=== PATIENT | male | born 1970 | race Caucasian/White ===

== ENCOUNTER → 2016-09-13 | Outpatient (CLI) | payer BC ==
[~2016-09-13] MED LIST: CLC/300 PO; IBUP-1050 PO
[2016-09-13 09:39] LABS: BASO % 0.6 %; BASO ABS # 0.03 K/uL (0-0.2); COMPLETE YES; HEMATOCRIT 41.2 % (42-52); LYMPH % 37.8 %; LYMPH ABS # 1.99 K/uL (1.2-3.4); MEAN CELL VOLUME 90.5 fL (80-100); MEAN CORPUSCULAR HEMOGLOBIN 30.3 pg (25-34); MEAN CORPUSCULAR HGB CONC 33.5 g/dl (32-36); MONO % 7.6 %; PLATELET COUNT 231 K/uL (130-400); RED BLOOD COUNT 4.55 M/uL (4.7-6.1); WHITE BLOOD COUNT 5.26 K/uL (4.8-10.8)
[2016-09-13 09:50] LABS: ALT/SGPT 46 U/L (12-78); CREATININE 0.92 mg/dl (0.60-1.40); URIC ACID 5.5 mg/dl (2.6-7.2)
[2016-09-13 09:53] LABS: ALKALINE PHOSPHATASE 72 U/L (45-117); AST/SGOT 24 U/L (15-37)
== END | disposition home or self-care (01) ==
LOC: C.LAB1850 07:35
PROVIDERS: ATTEND Internal Medicine Rheumatology
DX: M10.9 Gout, unspecified (principal)

== ENCOUNTER 2017-11-07 22:33 | Emergency (ER) | payer OTHER ==
[~2017-11-07] VITALS: Ht 185.4 cm; Wt 100.6 kg
[2017-11-07 22:36] VITALS: TEMP 36.6; Ht 185.4 cm; Wt 100.6 kg
[2017-11-07 23:06] VITALS: BP 124/85; PULSE 50; O2SAT 100
--- NOTE | 2017-11-07 23:10 | EMERGENCY ROOM VISIT NOTE ---
History First contact with patient: 22:41 Chief Complaint: LACERATION/CUT (NON-SUTURE) Stated Complaint: CUT LEFT INDEX FINGER Nursing Triage Summary: pt cut left index finger while cutting bread History of Present Illness The patient is a 47 year old male who presents to the Emergency Room with complaints of a laceration to his left index finger which occurred just prior to arrival. The patient states that he was slicing a loaf of bread when he slipped and accidentally cut his finger. He states that he cut bled a lot initially, but the bleeding has now slowed. He reports stinging, 2/10 pain at the site of laceration. He states his tetanus is up-to-date. He denies any numbness or weakness. Review of Systems A complete 6 point review of systems was reviewed with the patient with pertinent positives and negatives as per history of present illness. All else were negative. Past Medical/Surgical History Medical Problems: (1) No significant active problems Social History Smoking Status: Never Smoker Alcohol Use: occasionally Drug Use: none Current/Historical Medications Scheduled PRN Ibuprofen (Advil), 600-800 MG PO Q4 PRN for Pain Physical Exam Vital Signs Date Time Temp Pulse Resp B/P (MAP) Pulse Ox O2 Delivery O2 Flow Rate FiO2 11/07/17 23:06 50 16 124/85 100 Room Air 11/07/17 22:36 36.6 62 24 148/105 98 Room Air Physical Exam VITALS: Vitals are noted on the nurse's note and reviewed by myself. Vital signs stable. GENERAL: This is a 47-year-old male, in no acute distress, nondiaphoretic, well- developed well-nourished. SKIN: There is a 1.5 cm non-gaping laceration to the lateral aspect of the left index finger. No active bleeding. MUSCULOSKELETAL: Full range of motion of the left index finger. Capillary refill within 2 seconds. NEURO: Patient was alert and oriented to person place and time. Distal sensation intact. Medical Decision & Procedures Procedure Verbal consent was obtained to perform the procedure. The wound was cleansed with sterile saline and Betadine. 3 layers of Dermabond were applied to the wound. Hemostasis was achieved. The patient tolerated the procedure well. Medical Decision The patient was evaluated as above. He presents with a superficial laceration to the finger. Dermabond closure was performed. Wound care instructions were discussed with the patient. He verbalized understanding of my assessment and treatment plan and was discharged home in good condition. Medication Reconcilliation Current Medication List: was personally reviewed by me Blood Pressure Screening Patient's blood pressure: Elevated blood pressure Blood pressure disposition: Elevated BP felt to be situational Impression Primary Impression: Finger laceration Departure Information Dispostion Home / Self-Care Condition GOOD Referrals Pro,Georgi Angel M.D. (PCP) Patient Instructions My [facility] Additional Instructions Allow the skin glue to fall off on its own over the next several days. For pain control, you can use the following [id number] medicines (if >12 yo): - Regular strength (325mg/tab) Tylenol (acetaminophen) 2 tabs every 4-6 hours as needed. Do not exceed 12 tablets in a 24 hour period. Avoid taking more than 4 grams (4000 mg) of Tylenol per day. This includes any other sources of acetaminophen you may take on a regular basis. - Regular strength (200 mg/tab) Advil (ibuprofen) 1-2 tabs every 4-6 hours as needed. Do not exceed a dose of 3200 mg per day. Do not apply any ointments or lotions to the glue. Return for any signs of infection such as increasing redness, swelling, drainage or other new/concerning symptoms. Problem Qualifiers Primary Impression: Finger laceration Encounter type: initial encounter Finger: index finger Damage to nail status: without damage Foreign body presence: without foreign body Laterality: left Qualified Codes: S61.211A - Laceration without foreign body of left index finger without damage to nail, initial encounter
== END 2017-11-07 23:14 | disposition home or self-care (01) ==
LOC: C.EDB 22:34 → C.EDC 23:14
DX: S61.211A Laceration without foreign body of left index finger without damage to nail, initial encounter (principal); W26.0XXA Contact with knife, initial encounter

== ENCOUNTER 2024-10-30 19:36 | Inpatient (IN) ==
[2024-10-30] MEDS: SODIUM CHLORIDE 0.9% 1,000 ML IV ONE (19:54)
--- NOTE | 2024-10-30 19:55 | Emergency Department Note ---
Impression & Plan Diverticulitis, Leukocytosis, Bowel perforation ED Provider Note NAME: DHIRAJ FENRANDEZ AGE: 54 SEX: M : 1970 ARRIVES VIA: Walk-In INFORMANT: Patient ED PROVIDER(S): Deuce Marquez DO CHIEF COMPLAINT: Abdominal pain HPI: Patient is a 54-year-old male with a past medical history of edema, chronic venous insufficiency who presents ER for abdominal pain in the infraumbilical region. Associate with nausea but no vomiting. Denies any headache or change in vision. No chest pain or shortness of breath. No dysuria, urgency, or frequency. Patient denies any previous abdominal surgeries. He still has gallbladder appendix. It is worse with eating and drinking. ADDITIONAL HISTORY OBTAINED: Mom is present at bedside and notes that he has not had no previous surgeries. Chronic Medical/Social Conditions Affecting Care: Per HPI PAST MEDICAL HISTORY:See Below PAST SURGICAL HISTORY:See Below FAMILY HISTORY:See Below SOCIAL HISTORY:See Below HOME MEDICATIONS:See Below ALLERGIES:See Below VITALS:See Below PHYSICAL EXAMINATION: GENERAL: Sitting up in bed, alert, well appearing, well nourished, no distress, non-toxic EYE EXAM: normal conjunctiva. OROPHARYNX: mucous membranes are moist LUNGS: Clear to auscultation. Normal chest wall mechanics HEART: no murmurs, S1 normal and S2 normal ABDOMEN: abdomen soft, tender palpation right lower quadrant, normo-active bowel sounds, no masses, no rebound or guarding. UPPER EXTREMITIES: upper extremities are grossly normal. LOWER EXTREMITIES: No pitting edema. NEURO EXAM: Normal sensorium, cranial nerves II-XII grossly intact, normal speech, no gross weakness of arms, no gross weakness of legs. MEDICAL DECISION MAKING: [Patient is a 54-year-old male who presents ER for above-stated complaint. IV was established and blood work was obtained. Labs show leukocytosis of 16,000. No significant anemia. BMP along LFTs bilirubin and lipase was reassuring. UA was clean. CT Abdo pelvis showed microperforation with diverticulitis. Patient was given IV Zosyn, IV morphine and Zofran. He was updated at bedside. Discussed with general surgery Dr. Uribe and he was made aware and patient was admitted to the hospitalist Dr. Bimal Suh. Consults/Care Managements Discussions: Per [facility] Triage Nursing notes reviewed. Limited review of prior medical records performed Vital Signs: reviewed and remarkable for no significant abnormalities Differential diagnosis: Differential diagnoses includes but is not limited to gastritis, peptic ulcer disease, GERD, gallbladder disease, pancreatitis, small bowel obstruction, appendicitis, diverticulitis, hernia, urinary tract infection, torsion, perforation, trauma, infectious. ER treatment provided: See below Diagnostics interpreted by me include EKG and cardiac monitoring as listed below: -Cardiac Monitoring: An order was placed for continuous cardiac monitoring. The monitor shows a rate of 90 with sinus rhythm. -ECG: none -Laboratory studies:Interpreted by me as stated above in MDM and shown below. Imaging studies: Xrays: As interpreted by me:none CTs show: CT abdomen pelvis per my preliminary interpretation showed no obvious bowel obstruction CT abdomen pelvis per radiologist described above Procedures:none Critical Care: None Past Med/Surg History Problem List (Updated 10/31/24 @ 00:06 by Deuce Marquez DO) Bowel perforation (Acute) Leukocytosis (Acute) Diverticulitis (Acute) Acute diverticulitis Fever Chronic venous insufficiency Encounter for health maintenance examination Edema Varicose vein of leg Screening for lipid disorders Toe fracture, left Achilles tendinitis Plantar fasciitis of right foot Heel pain Elevated d-dimer Cyst of finger Pain in finger Encounter for health maintenance examination Tick bite of abdominal wall Gout (Acute) Intermittent low back pain (Acute) Upper back pain (Acute) Surgical History History of tooth extraction History of hernia repair History of hand surgery Family History Mother Thyroid condition Thyroid Grandfather (Maternal) Prostate cancer Denies family history of Colon cancer Ovarian cancer Myocardial infarction Breast cancer Social History Smoking Status: Never smoker Hx Alcohol Use: Yes Hx Substance Use: No Preferred Language: Indonesian Visual Impairment: No Limitations Hearing Ability: Normal marital status: current occupational status: employed Feels Safe at Home: Yes Childhood Exposure to Second-Hand Smoke: No Dental Care, Regularly: Yes Physical Activity Frequency: Does not Exercise Physical Activity Frequency Comment: none in past 4 months Seatbelt Use: always Sunscreen Use: Yes Allergies Allergies Allergy/AdvReac Type Severity Reaction Status Date / Time piperacillin [From Zosyn] Allergy Hives Verified 10/30/24 23:16 tazobactam [From Zosyn] Allergy Hives Verified 10/30/24 23:16 Home Meds Home Medications Medication Instructions Recorded Confirmed melatonin 10 mg capsule 10 mg PO HS Insomnia 11/15/21 10/30/24 allopurinol 100 mg tablet 200 mg PO DAILY 10/30/24 10/30/24 ascorbic acid (vitamin C) 1,000 mg 1,000 mg PO DAILY 10/30/24 10/30/24 tablet (Vitamin C) hydrocortisone 2.5 % topical cream 1 applic CO DAILY PRN Hemorrhoids 10/30/24 10/30/24 with perineal applicator (Procto-Med HC) vitamin D3 125 mcg (5,000 1 cap PO DAILY 10/30/24 10/30/24 unit)-vitamin K2 100 mcg capsule zinc 50 mg tablet 50 mg PO DAILY 10/30/24 10/30/24 Results & Data (ED) Vital Signs Vital Signs - 24 hr 10/30/24 19:39 10/30/24 19:51 10/30/24 20:02 Temperature 37.2 C Temperature Source Temporal Artery Scan Pulse Rate 87 73 Pulse Rate [Apical] 76 Pulse Rate from SpO2 Sensor Pulse Rhythm Regular Pulse Rhythm [Apical] Respiratory Rate 16 20 20 Respiratory Effort / Characteristics Non-Labored Spontaneous Respiratory Depth Respiratory Pattern Regular Blood Pressure 133/87 Blood Pressure [Left Arm] 115/72 Blood Pressure Mean 102 Blood Pressure Mean [Left Arm] 86 Blood Pressure Position [Left Arm] Lying Pulse Oximetry 98 96 97 Oxygen Delivery Method Room Air Room Air Room Air Sepsis Recent Fever Within 48 Hours No Sepsis New/Unexplained Change in Mental Status No Sepsis Action Taken by Nursing No Action Required 10/30/24 20:05 10/30/24 20:24 10/30/24 20:30 Temperature Temperature Source Pulse Rate 72 72 Pulse Rate [Apical] Pulse Rate from SpO2 Sensor 72 Pulse Rhythm Pulse Rhythm [Apical] Respiratory Rate 25 H Respiratory Effort / Characteristics Respiratory Depth Respiratory Pattern Blood Pressure 109/81 Blood Pressure [Left Arm] Blood Pressure Mean 86 Blood Pressure Mean [Left Arm] Blood Pressure Position [Left Arm] Pulse Oximetry 99 Oxygen Delivery Method Sepsis Recent Fever Within 48 Hours Sepsis New/Unexplained Change in Mental Status Sepsis Action Taken by Nursing 10/30/24 20:30 10/30/24 20:30 10/30/24 20:30 Temperature Temperature Source Pulse Rate 69 Pulse Rate [Apical] Pulse Rate from SpO2 Sensor 70 Pulse Rhythm Pulse Rhythm [Apical] Respiratory Rate 15 Respiratory Effort / Characteristics Respiratory Depth Respiratory Pattern Blood Pressure 109/81 109/81 Blood Pressure [Left Arm] Blood Pressure Mean 86 86 Blood Pressure Mean [Left Arm] Blood Pressure Position [Left Arm] Pulse Oximetry 99 Oxygen Delivery Method Sepsis Recent Fever Within 48 Hours Sepsis New/Unexplained Change in Mental Status Sepsis Action Taken by Nursing 10/30/24 21:12 10/30/24 21:13 10/30/24 21:13 Temperature Temperature Source Pulse Rate 74 Pulse Rate [Apical] Pulse Rate from SpO2 Sensor 70 Pulse Rhythm Pulse Rhythm [Apical] Respiratory Rate 21 Respiratory Effort / Characteristics Respiratory Depth Respiratory Pattern Blood Pressure 112/75 112/75 Blood Pressure [Left Arm] Blood Pressure Mean 86 86 Blood Pressure Mean [Left Arm] Blood Pressure Position [Left Arm] Pulse Oximetry 98 Oxygen Delivery Method Sepsis Recent Fever Within 48 Hours Sepsis New/Unexplained Change in Mental Status Sepsis Action Taken by Nursing 10/30/24 21:13 10/30/24 21:31 10/30/24 21:31 Temperature Temperature Source Pulse Rate Pulse Rate [Apical] Pulse Rate from SpO2 Sensor Pulse Rhythm Pulse Rhythm [Apical] Respiratory Rate Respiratory Effort / Characteristics Respiratory Depth Respiratory Pattern Blood Pressure 112/75 116/80 116/80 Blood Pressure [Left Arm] Blood Pressure Mean 86 91 91 Blood Pressure Mean [Left Arm] Blood Pressure Position [Left Arm] Pulse Oximetry Oxygen Delivery Method Sepsis Recent Fever Within 48 Hours Sepsis New/Unexplained Change in Mental Status Sepsis Action Taken by Nursing 10/30/24 21:31 10/30/24 21:33 10/30/24 21:51 Temperature Temperature Source Pulse Rate 69 71 Pulse Rate [Apical] Pulse Rate from SpO2 Sensor 68 71 Pulse Rhythm Pulse Rhythm [Apical] Respiratory Rate 27 H 15 Respiratory Effort / Characteristics Respiratory Depth Respiratory Pattern Blood Pressure 116/80 Blood Pressure [Left Arm] Blood Pressure Mean 91 Blood Pressure Mean [Left Arm] Blood Pressure Position [Left Arm] Pulse Oximetry 99 98 Oxygen Delivery Method Sepsis Recent Fever Within 48 Hours Sepsis New/Unexplained Change in Mental Status Sepsis Action Taken by Nursing 10/30/24 22:00 10/30/24 22:00 10/30/24 22:03 Temperature Temperature Source Pulse Rate 68 Pulse Rate [Apical] Pulse Rate from SpO2 Sensor 68 Pulse Rhythm Pulse Rhythm [Apical] Respiratory Rate 18 Respiratory Effort / Characteristics Respiratory Depth Respiratory Pattern Blood Pressure 130/84 130/84 Blood Pressure [Left Arm] Blood Pressure Mean 109 109 Blood Pressure Mean [Left Arm] Blood Pressure Position [Left Arm] Pulse Oximetry 98 Oxygen Delivery Method Sepsis Recent Fever Within 48 Hours Sepsis New/Unexplained Change in Mental Status Sepsis Action Taken by Nursing 10/30/24 23:27 Temperature Temperature Source Pulse Rate Pulse Rate [Apical] 69 Pulse Rate from SpO2 Sensor Pulse Rhythm Pulse Rhythm [Apical] Regular Respiratory Rate 18 Respiratory Effort / Characteristics Respiratory Depth Normal Respiratory Pattern Blood Pressure Blood Pressure [Left Arm] 115/76 Blood Pressure Mean Blood Pressure Mean [Left Arm] 89 Blood Pressure Position [Left Arm] Pulse Oximetry 99 Oxygen Delivery Method Room Air Sepsis Recent Fever Within 48 Hours Sepsis New/Unexplained Change in Mental Status Sepsis Action Taken by Nursing Laboratory Data 10/30/24 19:57 10/30/24 19:57 Lab Results 10/30/24 10/30/24 Range/Units 19:57 21:12 WBC 16.05 H (4.8-10.8) K/ul RBC 4.78 (4.70-6.10) M/uL Hgb 14.2 (14.0-18.0) g/dl Hct 42.6 (42.0-52.0) % MCV 89.1 (80.0-100.0) fL MCH 29.7 (25.0-34.0) pg MCHC 33.3 (32.0-36.0) g/dL RDW Std Deviation 41.2 (36.4-46.3) fL RDW Coeff of Van 12.7 (11.5-14.5) % Plt Count 247 (130-400) K/uL MPV 10.5 (9.4-12.4) fL Immature Gran % (Auto) 0.4 % Neut % (Auto) 86.2 % Lymph % (Auto) 8.1 % Camp % (Auto) 5.0 % Eos % (Auto) 0.1 % Baso % (Auto) 0.2 % Neut # (Auto) 13.82 H (1.40-6.50) K/uL Lymph # (Auto) 1.30 (1.20-3.40) K/uL Camp # (Auto) 0.81 H (0.11-0.59) K/uL Eos # (Auto) 0.01 (0.00-0.50) K/uL Baso # (Auto) 0.04 (0.00-0.20) K/uL Immature Gran # (Auto) 0.07 (0.01-0.20) K/uL Sodium 137 (136-145) mmol/L Potassium 3.9 (3.5-5.1) mmol/L Chloride 104 (98-107) mmol/L Carbon Dioxide 26 (21-32) mmol/L Anion Gap 7 (3-11) BUN 14 (6-23) mg/dl Creatinine 1.03 (0.6-1.4) mg/dl Est Cr Clr Drug Dosing 105.1 ml/min eGFR 85.79 BUN/Creatinine Ratio 13.6 (10-20) Glucose 95 (70-99(Fasting)) mg/dl Calcium 9.3 (8.6-10.3) mg/dl Total Bilirubin 1.3 H (0.2-1.0) mg/dl AST 17 (13-39) U/L ALT 21 (7-52) U/L Alkaline Phosphatase 68 (34-104) U/L Total Protein 7.4 (6.0-8.3) gm/dl Albumin 4.4 (3.4-5.0) gm/dl Globulin 3.0 (2.5-4.0) gm/dl Albumin/Globulin Ratio 1.5 (0.9-2) Lipase 7 L (11-82) U/L Urine Color Yellow Urine Appearance Clear (Clear) Urine pH 6.5 (4.5-7.5) Ur Specific Parachute 1.015 (1.000-1.030) Urine Protein Negative (Negative) Urine Glucose (UA) Negative (Negative) Urine Ketones Negative (Negative) Urine Blood Negative (Negative) Urine Nitrite Negative (Negative) Urine Bilirubin Negative (Negative) Urine Urobilinogen Negative (Negative) Ur Leukocyte Esterase Negative (Negative) Urine Comment Administered Medications Discontinued Medications Diphenhydramine HCl (Diphenhydramine 50 Mg/Ml Vial) 25 mg IV NOW STA Stop: 10/30/24 23:11 Last Admin: 10/30/24 23:21 Dose: 25 mg Documented By: NAW Sodium Chloride (Nss) 1,000 mls @ 999 mls/hr IV .Q1H1M ONE Stop: 10/30/24 20:52 Last Infusion: 10/30/24 22:52 Dose: Infused Documented By: Admin: 10/30/24 19:54 Dose: 999 mls/hr Documented By: OBED Piperacillin Sod/Tazobactam Sod (Zosyn) 4.5 gm in 100 mls @ 200 mls/hr IV NOW ONE; Protocol Stop: 10/30/24 22:23 Last Infusion: 10/30/24 22:52 Dose: Infused Documented By: Admin: 10/30/24 22:08 Dose: 200 mls/hr Documented By: OBED Ioversol (Optiray 320 100ml) 93 ml IV ONCE ONE Stop: 10/30/24 21:02 Last Admin: 10/30/24 21:01 Dose: 93 ml Documented By: SILAS Morphine Sulfate (Morphine Sulfate 4 Mg/Ml 1 Ml Carp\Vial) 4 mg IV NOW STA Stop: 10/30/24 22:18 Last Admin: 10/30/24 22:25 Dose: 4 mg Documented By: OBED Ondansetron HCl (Ondansetron Inj 2 Mg/Ml 2 Ml Vial) 4 mg IV NOW STA Stop: 10/30/24 22:18 Last Admin: 10/30/24 22:25 Dose: 4 mg Documented By: OBED Imaging Data Radiologist's Impression: Abdomen/Pelvis CT 10/30/24 19:51 CR Exam(s): CT ABDOMEN + PELVIS With Contrast IV Amt: 93ml opt 320 EXAM: CT Abdomen and Pelvis With Intravenous Contrast CLINICAL HISTORY: Reason for exam: abd pain. TECHNIQUE: Axial computed tomography images of the abdomen and pelvis with intravenous contrast. CTDI is 26.99 mGy and DLP is 1384.15 mGy-cm. Automated exposure control was utilized for the study. A dose lowering technique was utilized adhering to the principles of ALARA. CONTRAST: Patient received 93ml opt 320 of IV contrast COMPARISON: CT 10/05/2021 FINDINGS: ABDOMEN: Liver: Unremarkable. Gallbladder and bile ducts: Unremarkable. Pancreas: Unremarkable. Spleen: Unremarkable. Adrenals: Unremarkable. Kidneys and ureters: Unremarkable. No obstructing stones. No hydronephrosis. Stomach and bowel: Acute diverticulitis of the sigmoid colon. A few bubbles of extraluminal gas contained immediately adjacent to the sigmoid colon. No subdiaphragmatic free air. No abscess. Reactive mucosal thickening in the small bowel in the left lower quadrant. No bowel obstruction. PELVIS: Appendix: No findings to suggest acute appendicitis. Bladder: Unremarkable. Reproductive: Prostatomegaly. ABDOMEN and PELVIS: Intraperitoneal space: See above. Bones/joints: No acute fracture. Soft tissues: Posterior diaphragmatic hernia containing fat. Vasculature: Unremarkable. Lymph nodes: Unremarkable. IMPRESSION: Acute diverticulitis of the sigmoid colon. A few bubbles of extraluminal gas contained immediately adjacent to the sigmoid colon. No subdiaphragmatic free air. No abscess. Communications: Verify Receipt Electronically signed by: Cisco Feliz MD 10/30/24 21:48 PM Discharge Plan Visit Data Chief Complaint: Abdominal Pain Stated Complaint: ACUTE ABDOMINAL PAIN, CONCERN ABT DIVERTICULITIS ED Provider: Deuce Marquez Discharge Problem: Diverticulitis, Leukocytosis, Bowel perforation Condition: Fair Forms Stand Alone Forms: [facility] [employer] Prescriptions Prescriptions: No Action melatonin 10 mg capsule 10 mg PO HS hydrocortisone [Procto-Med HC] 2.5 % cream with perineal applicator 1 applic CO DAILY PRN (Reason: Hemorrhoids) allopurinol 100 mg tablet 200 mg PO DAILY ascorbic acid (vitamin C) [Vitamin C] 1,000 mg Tablet 1,000 mg PO DAILY Zinc Chelated 50 mg Tablet 50 mg PO DAILY vitamin D3-vitamin K2 125 mcg (5,000 unit)-100 mcg Capsule 1 cap PO DAILY Referrals Referrals: Georgi Mcdonnell MD [Primary Care Provider] - Discharge Problem: Leukocytosis Qualifiers: Leukocytosis type: unspecified Qualified Code(s): D72.829 - Elevated white blood cell count, unspecified
[2024-10-30 20:18] LABS: Hematocrit (blood only) 42.6 % (42.0-52.0); Hemoglobin 14.2 g/dl (14.0-18.0); Immature Granulocytes # (auto) 0.07 K/uL (0.01-0.20); Immature Granulocytes % (auto) 0.4 %; Mean Corpuscular Hemoglobin 29.7 pg (25.0-34.0); Mean Corpuscular Volume 89.1 fL (80.0-100.0); Platelet Count 247 K/uL (130-400); RDW Standard Deviation 41.2 fL (36.4-46.3); Red Blood Count 4.78 M/uL (4.70-6.10); White Blood Count 16.05 K/ul (4.8-10.8)
[2024-10-30 20:37] LABS: Alanine Aminotransferase 21.0 U/L (7-52); Albumin Globulin Ratio 1.5 (0.9-2); Alkaline Phosphatase 68.0 U/L (34-104); Anion Gap 7.0 (3-11); Bilirubin,Total 1.3 mg/dl (0.2-1.0); Blood Urea Nitrogen 14.0 mg/dl (6-23); Calcium 9.3 mg/dl (8.6-10.3); Carbon Dioxide 26.0 mmol/L (21-32); Chloride 104.0 mmol/L (98-107); Creatinine Clr Calc Pharmacy 105.1 ml/min; Globulin 3.0 gm/dl (2.5-4.0); Glucose 95.0 mg/dl (70-99(Fasting)); Lipase 7.0 U/L (11-82); Potassium 3.9 mmol/L (3.5-5.1); Sodium 137.0 mmol/L (136-145); Total Protein 7.4 gm/dl (6.0-8.3)
[2024-10-30] MEDS: OPTIRAY 320 100ml IV ONE (21:01)
--- NOTE | 2024-10-30 21:49 | CT Scan Report ---
Exam(s): CT ABDOMEN + PELVIS With Contrast IV Amt: 93ml opt 320 EXAM: CT Abdomen and Pelvis With Intravenous Contrast CLINICAL HISTORY: Reason for exam: abd pain. TECHNIQUE: Axial computed tomography images of the abdomen and pelvis with intravenous contrast. CTDI is 26.99 mGy and DLP is 1384.15 mGy-cm. Automated exposure control was utilized for the study. A dose lowering technique was utilized adhering to the principles of ALARA. CONTRAST: Patient received 93ml opt 320 of IV contrast COMPARISON: CT 10/05/2021 FINDINGS: ABDOMEN: Liver: Unremarkable. Gallbladder and bile ducts: Unremarkable. Pancreas: Unremarkable. Spleen: Unremarkable. Adrenals: Unremarkable. Kidneys and ureters: Unremarkable. No obstructing stones. No hydronephrosis. Stomach and bowel: Acute diverticulitis of the sigmoid colon. A few bubbles of extraluminal gas contained immediately adjacent to the sigmoid colon. No subdiaphragmatic free air. No abscess. Reactive mucosal thickening in the small bowel in the left lower quadrant. No bowel obstruction. PELVIS: Appendix: No findings to suggest acute appendicitis. Bladder: Unremarkable. Reproductive: Prostatomegaly. ABDOMEN and PELVIS: Intraperitoneal space: See above. Bones/joints: No acute fracture. Soft tissues: Posterior diaphragmatic hernia containing fat. Vasculature: Unremarkable. Lymph nodes: Unremarkable. IMPRESSION: Acute diverticulitis of the sigmoid colon. A few bubbles of extraluminal gas contained immediately adjacent to the sigmoid colon. No subdiaphragmatic free air. No abscess. Communications: Verify Receipt Electronically signed by: Cisco Feliz MD 10/30/24 21:48 PM
[2024-10-30 21:54] LABS: Appearance Urine Clear (Clear); Glucose Urine UA Negative (Negative)
[2024-10-30] MEDS: PIPERACILLIN/TAZOBACTAM 4.5 GM/100 ML BAG IV ONE (22:08)
--- NOTE | 2024-10-30 22:12 | History & Physical Report ---
Date of Service October 30, 2024 Assessment & Plan (1) Acute diverticulitis: Plan 54-year-old male PMHx diverticulosis and diverticulitis in September 2021, gout, BPH, and back pain presenting for abdominal pain starting at 0200 morning of arrival. ED eval CBC with leukocytosis 16.05, neutrophil predominant; CMP grossly unremarkable with exception of bilirubin 1.3; lipase 7; UA negative for infection; CTAP diverticulitis of sigmoid, few bubbles of extraluminal gas adjacent to sigmoid, no diaphragmatic air or abscess.; Provided with 1L NSS, Zosyn 4.5 g IV in ED. #Acute diverticulitis Patient with history of diverticulosis, h/o diverticulitis September 2021; Presenting with abdominal pain starting at 0200, associated nausea and diarrhea. Hemodynamically stable. Pt with lots of questions regarding appropriate bowel habits, dietary modifications, and future prevention for such episodes. This was discussed with him at the time of his admission, but pt would benefit from a handout to summarize this new information. - CBC leukocytosis 16.05; CMP bilirubin 1.3 - CBC am - CTAP diverticulitis of sigmoid colon, few bubbles of extraluminal gas adjacent to the sigmoid, no diaphragmatic air or abscess - NPO - IVF LR @ 125 mL/hr - Dilaudid prn pain -- initially received 1 dose of morphine which was AFTER Zosyn was administered, but given the development of hives I did d/c morphine as well but DO NOT suspect that this was the cause of the hives. - Zofran prn N/V - Metro + cipro IV started -- pt received 1 dose Zosyn in ED and started to develop hives across his entire back, with itching on his bilateral thighs. Zos yn d/c; pt received Benadryl IV in ED. Zosyn added to allergy list. - Gen sx consulted - appreciate input + recs IN HPI: Notified via [facility] at 2306 regarding a rash spreading across the patient's back. He did note itching of his bilateral thighs during my initial evaluation around [id number], but he was without any hives or additional skin changes at that time to include on his back. He was without SOB, throat swelling, or tongue swelling. The rash extended from the top of his back to the level of his waistband. His bilateral thighs did have the development of hives at that time. He had received Zosyn at the time of when this initially started with the itching, and morphine was just to be given. Zosyn was documented to have been given at 2208, morphine and Zofran were documented to have been given at 2225. Do suspect that this reaction was to Zosyn, however, given the administration of morphine as well, treatment will be adjusted to avoid both Zosyn and morphine during this hospital admission. Pt treated with Benadryl IV. HELD all oral medications at time of admission. #Gout- Stable, no current complaints; Allopurinol - continue #H/o elevated D-dimer- Ongoing laboratory abnormality since 2021, has been seen by heme/onc in the past. Thought to be secondary to inflammation; was not checked at admission given no clinical indications. Trend if appropriate. Dispo: Admit, med/sx VTE Prophylaxis: SCDs This document was dictated utilizing BeQuan. Please excuse any grammatical errors that may be secondary to use of this software. Admission and Anticipated Discharge Date Admission Date: 10/30/2024 History of Present Illness Chief Complaint: Abd pain Primary Care Provider: Georgi Mcdonnell MD 54-year-old male PMHx diverticulosis and diverticulitis in 2021, gout, BPH, and back pain presenting for abdominal pain starting at 0200 morning of arrival. States that the pain was a sudden onset, and was localized to his lower abdomen, just above the "genital region" per patient. States at its worse, it is a 7/10 on the pain scale and it is a sharp pain. It has not gotten any better, but it is worsened when he is sitting up straight or with movement. Reports that he has had diarrhea the past 2 days GINNER, only a few times per day. He does use a daily laxative. Did have episode of "gagging like he would throw up" when having a bowel movement earlier in the day, but did not have any vomiting. He denies fever or chills. Does not have any ideas as to what could have precipitated this. Of note, he has been having itching on his bilateral thighs where the hospital blankets are touching him. No allergic symptoms or rashes reported. Denies chest pain, SOB, palpitations, constipation, numbness/tingling, URI symptoms, weakness, syncope, or falls. ED eval CBC with leukocytosis 16.05, neutrophil predominant; CMP grossly unremarkable with exception of bilirubin 1.3; lipase 7; UA negative for infection; CTAP diverticulitis of sigmoid, few bubbles of extraluminal gas adjacent to sigmoid, no diaphragmatic air or abscess.; Provided with 1L NSS, Zosyn 4.5 g IV in ED. Notified via [facility] at 2305 regarding a rash spreading across the patient's back. He did note itching of his bilateral thighs during my initial evaluation around [id number], but he was without any hives or additional skin changes at that time to include on his back. He was without SOB, throat swelling, or tongue swelling. The rash extended from the top of his back to the level of his waistband. His bilateral thighs did have the development of hives at that time. He had received Zosyn at the time of when this initially started with the itching, and morphine was just to be given. Zosyn was documented to have been given at 2207, morphine and Zofran were documented to have been given at 2224. Do suspect that this reaction was to Zosyn, however, given the administration of morphine as well, treatment will be adjusted to avoid both Zosyn and morphine during this hospital admission. Pt treated with Benadryl IV. Please see Dr. Suh's attestation for adjustments/additions to treatment plan. Allergies Allergy/AdvReac Type Severity Reaction Status Date / Time piperacillin [From Zosyn] Allergy Hives Verified 10/30/24 23:16 tazobactam [From Zosyn] Allergy Hives Verified 10/30/24 23:16 Home Medications Medication Instructions Recorded Confirmed Type melatonin 10 mg capsule 10 mg PO HS Insomnia 11/15/21 10/30/24 History allopurinol 100 mg tablet 200 mg PO DAILY 10/30/24 10/30/24 History ascorbic acid (vitamin C) 1,000 mg 1,000 mg PO DAILY 10/30/24 10/30/24 History tablet (Vitamin C) hydrocortisone 2.5 % topical cream [address] DAILY PRN Hemorrhoids 10/30/24 10/30/24 History with perineal applicator (Procto-Med ) vitamin D3 125 mcg (5,000 1 cap PO DAILY 10/30/24 10/30/24 History unit)-vitamin K2 100 mcg capsule zinc 50 mg tablet 50 mg PO DAILY 10/30/24 10/30/24 History Past Med/Surg History Problem List (Updated 10/30/24 @ 22:22 by Trevor Hallman PA-C) Acute diverticulitis Fever Chronic venous insufficiency Encounter for health maintenance examination Edema Varicose vein of leg Screening for lipid disorders Toe fracture, left Achilles tendinitis Plantar fasciitis of right foot Heel pain Elevated d-dimer Cyst of finger Pain in finger Encounter for health maintenance examination Tick bite of abdominal wall Gout (Acute) Intermittent low back pain (Acute) Upper back pain (Acute) Surgical History History of tooth extraction History of hernia repair History of hand surgery Family History Mother Thyroid condition Thyroid Grandfather (Maternal) Prostate cancer Denies family history of Colon cancer Ovarian cancer Myocardial infarction Breast cancer Social History Smoking Status: Never smoker Hx Alcohol Use: Yes Hx Substance Use: No Preferred Language: Malaysian Visual Impairment: No Limitations Hearing Ability: Normal marital status: current occupational status: employed Feels Safe at Home: Yes Childhood Exposure to Second-Hand Smoke: No Dental Care, Regularly: Yes Physical Activity Frequency: Does not Exercise Physical Activity Frequency Comment: none in past 4 months Seatbelt Use: always Sunscreen Use: Yes Review of Systems Review of Systems: All systems reviewed & are unremarkable except as noted in Subjective Physical Exam Physical Exam: General: No acute distress Skin: Warm and dry; Scratching his thighs so there are slightly erythematous jordan where he is doing this but no breaks to skin and no skin changes otherwise, no hives; Upon reeval at 2315, pt was up to restroom and his back was covered in diffuse hives, raised and erythematous Head: Normocephalic, atraumatic Eyes: PERRL, conjunctivae clear, sclera non-icteric ENT: External ear and ear canal without swelling; nose atraumatic; good dentition, tongue normal appearance, pharynx normal Neck: Supple, no LAD Cardio: RRR, no M/G/R, S1 and S2 normal Resp: No respiratory distress, Lungs CTA in all lobes bilaterally, no wheezes, rales, or rhonchi Abdomen: Soft, symmetric, mild tenderness to palpation LLQ; No masses or hepatosplenomegaly; Bowel sounds normoactive MSK: No deformities; pulses palpable and equal; no edema. Neuro: Awake, alert; Sensation intact bilaterally; CN grossly intact Psych: Appropriate mood and affect; good judgement and insight. present in room at time of visit. Results & Data Results & Data Vital Signs (Past 12 Hours) Vital Signs Temp Pulse Pulse Resp BP BP Pulse Ox 10/30/24 21:13 112/75 10/30/24 21:13 112/75 10/30/24 21:13 112/75 10/30/24 21:12 74 21 98 10/30/24 20:30 69 15 99 10/30/24 20:30 109/81 10/30/24 20:30 109/81 10/30/24 20:30 109/81 10/30/24 20:24 72 25 H 99 10/30/24 20:05 72 10/30/24 20:02 76 20 115/72 97 10/30/24 19:51 73 20 96 10/30/24 19:39 37.2 C 87 16 133/87 98 O2 Del Method 10/30/24 21:13 10/30/24 21:13 10/30/24 21:13 10/30/24 21:12 10/30/24 20:30 10/30/24 20:30 10/30/24 20:30 10/30/24 20:30 10/30/24 20:24 10/30/24 20:05 10/30/24 20:02 Room Air 10/30/24 19:51 Room Air 10/30/24 19:39 Room Air Laboratory Results 10/30/24 10/30/24 21:12 19:57 WBC 16.05 H RBC 4.78 Hgb 14.2 Hct 42.6 MCV 89.1 MCH 29.7 MCHC 33.3 RDW Std Deviation 41.2 RDW Coeff of Van 12.7 Plt Count 247 MPV 10.5 Immature Gran % (Auto) 0.4 Neut % (Auto) 86.2 Lymph % (Auto) 8.1 [place] % (Auto) 5.0 Eos % (Auto) 0.1 Baso % (Auto) 0.2 Neut # (Auto) 13.82 H Lymph # (Auto) 1.30 [place] # (Auto) 0.81 H Eos # (Auto) 0.01 Baso # (Auto) 0.04 Immature Gran # (Auto) 0.07 Sodium 137 Potassium 3.9 Chloride 104 Carbon Dioxide 26 Anion Gap 7 BUN 14 Creatinine 1.03 Est Cr Clr Drug Dosing 105.1 eGFR 85.79 BUN/Creatinine Ratio 13.6 Glucose 95 Calcium 9.3 Total Bilirubin 1.3 H AST 17 ALT 21 Alkaline Phosphatase 68 Total Protein 7.4 Albumin 4.4 Globulin 3.0 Albumin/Globulin Ratio 1.5 Lipase 7 L Urine Color Yellow Urine Appearance Clear Urine pH 6.5 Ur Specific [place] 1.015 Urine Protein Negative Urine Glucose (UA) Negative Urine Ketones Negative Urine Blood Negative Urine Nitrite Negative Urine Bilirubin Negative Urine Urobilinogen Negative Ur Leukocyte Esterase Negative Urine Comment Diagnostic Findings Abdomen/Pelvis CT 10/30/24 19:51 CR Exam(s): CT ABDOMEN + PELVIS With Contrast IV Amt: 93ml opt 320 EXAM: CT Abdomen and Pelvis With Intravenous Contrast CLINICAL HISTORY: Reason for exam: abd pain. TECHNIQUE: Axial computed tomography images of the abdomen and pelvis with intravenous contrast. CTDI is 26.99 mGy and DLP is 1384.15 mGy-cm. Automated exposure control was utilized for the study. A dose lowering technique was utilized adhering to the principles of ALARA. CONTRAST: Patient received 93ml opt 320 of IV contrast COMPARISON: CT 10/05/2021 FINDINGS: ABDOMEN: Liver: Unremarkable. Gallbladder and bile ducts: Unremarkable. Pancreas: Unremarkable. Spleen: Unremarkable. Adrenals: Unremarkable. Kidneys and ureters: Unremarkable. No obstructing stones. No hydronephrosis. Stomach and bowel: Acute diverticulitis of the sigmoid colon. A few bubbles of extraluminal gas contained immediately adjacent to the sigmoid colon. No subdiaphragmatic free air. No abscess. Reactive mucosal thickening in the small bowel in the left lower quadrant. No bowel obstruction. PELVIS: Appendix: No findings to suggest acute appendicitis. Bladder: Unremarkable. Reproductive: Prostatomegaly. ABDOMEN and PELVIS: Intraperitoneal space: See above. Bones/joints: No acute fracture. Soft tissues: Posterior diaphragmatic hernia containing fat. Vasculature: Unremarkable. Lymph nodes: Unremarkable. IMPRESSION: Acute diverticulitis of the sigmoid colon. A few bubbles of extraluminal gas contained immediately adjacent to the sigmoid colon. No subdiaphragmatic free air. No abscess. Communications: Verify Receipt Electronically signed by: Cisco Feliz MD 10/30/24 21:48 PM Medications Administered Zosyn 4.5 g IV NSS 1L Code Status & VTE Plan Code Status Full Supervising Physician Co-Signing Physician Notes Attending addendum: I have physically seen this patient, have supervised the SILVER's activities, and agree with the H&P unless as otherwise noted. Assessment and Plan: The patient is a 54-year-old male with a past medical history including chronic venous insufficiency, lower extremity edema, Achilles tendinitis, gout, and intermittent back pain. He presents to the emergency department with acute onset of left lower quadrant pain, and notes that he and his have been eating significantly more vegetables over the past few weeks and effort of being healthier. CT scan of abdomen pelvis shows a acute sigmoid diverticulitis with microperforation, with extraluminal gas adjacent to the sigmoid colon noted. In the emergency department patient received Zosyn IV, morphine 4 mg IV, Zofran 4 mg IV and normal saline 1 L. Sigmoid diverticulitis with microperforation- CT notes the diagnosis, and extraluminal gas adjacent to the sigmoid. N.p.o. Patient unfortunately had a significant reaction to Zosyn IV, which was completed in the ED He had significant improvement to the rash after given Benadryl 25 mg IV. Admit on Cipro 40 mg IV every 12 hours, and Flagyl 500 mg IV every 8 hours Pantoprazole 40 mg IV daily Status post 1 L normal saline bolus in the ED Placed on LR at 125 mL/h Dilaudid IV for pain control as noted General Surgery consult has been placed by the emergency department Zofran 4 mg IV every 6 hours as needed Gout- No active issues at this time Hold on allopurinol until able to take p.o. Insomnia- Hold melatonin while n.p.o. Remaining orders and notations as noted PG Care Time/CCT Total # of Minutes Spent Total Time Spent with Patient: Total time spent is greater than 50% in coordination of care (as documented) at patient's floor/unit and/or counseling patient: Coding Level of Care Code 76809 INT INP/OBS CARE Diagnoses Acute diverticulitis K57.92
[2024-10-30] MEDS: MoRPHine SULFATE 4 MG/ML 1 ML CARP\\VIAL IV STA (22:25)
[2024-10-30] MEDS: ONDANSETRON INJ 2 MG/ML 2 ML VIAL IV STA (22:25)
[2024-10-30] MEDS: diphenhydrAMINE 50 MG/ML VIAL IV STA (23:21)
[2024-10-31] MEDS ORDERED: NALOXONE HCL 0.4 MG/1 ML VIAL/CARP IV PRN (01:36)
[2024-10-31] MEDS ORDERED: HYDROmorphone INJ 0.5 MG/0.5 ML SYR IV PRN (01:36)
[2024-10-31] MEDS ORDERED: ONDANSETRON INJ 2 MG/ML 2 ML VIAL IV PRN (01:36)
[2024-10-31] MEDS: LACTATED RINGER'S 1,000 ML IV SCH (01:59)
[2024-10-31] MEDS: HYDROmorphone INJ 0.5 MG/0.5 ML SYR IV PRN (02:06)
[2024-10-31] MEDS ORDERED: Nursing to Pharmacy Communication SCH (02:30)
[2024-10-31] MEDS: metroNIDAZOLE 500 MG/100 ML BAG IV SCH (02:34)
[2024-10-31] MEDS: CIPROFLOXACIN / D5W 400 MG/200 ML BAG IV SCH (03:42)
[2024-10-31] MEDS: diphenhydrAMINE 50 MG/ML VIAL IV STA (05:47)
[2024-10-31 06:53] LABS: Hematocrit (blood only) 39.2 % (42.0-52.0); Hemoglobin 12.8 g/dl (14.0-18.0); Mean Corpuscular Hemoglobin 29.8 pg (25.0-34.0); Mean Corpuscular Volume 91.2 fL (80.0-100.0); Platelet Count 196 K/uL (130-400); RDW Standard Deviation 42.7 fL (36.4-46.3); Red Blood Count 4.30 M/uL (4.70-6.10); White Blood Count 10.19 K/ul (4.8-10.8)
[2024-10-31 07:33] LABS: Anion Gap 5.0 (3-11); Blood Urea Nitrogen 13.0 mg/dl (6-23); Calcium 8.4 mg/dl (8.6-10.3); Carbon Dioxide 26.0 mmol/L (21-32); Chloride 108.0 mmol/L (98-107); Creatinine Clr Calc Pharmacy 93.8 ml/min; Glucose 102.0 mg/dl (70-99(Fasting)); Potassium 3.8 mmol/L (3.5-5.1); Sodium 139.0 mmol/L (136-145)
--- NOTE | 2024-10-31 11:07 | Hospitalist Progress Note ---
Date of Service October 31, 2024 Assessment & Plan (1) Acute diverticulitis: Plan: -CT shows diverticulitis of sigmoid colon, few bubbles of extraluminal gas adjacent to the sigmoid, no diaphragmatic air or abscess -cipro/flagyl dand #1 -clear liquid diet -IVF -Toradol for pain control (2) Drug rash: Plan: -related to zosyn and possible Dilaudid -discontinued both -benadryl prn -con't to monitor Plan 54-year-old male PMHx diverticulosis and diverticulitis in September 2021, gout, BPH, and back pain presenting for abdominal pain starting at 0200 morning of arrival. ED eval CBC with leukocytosis 16.05, neutrophil predominant; CMP grossly unremarkable with exception of bilirubin 1.3; lipase 7; UA negative for infection; CTAP diverticulitis of sigmoid, few bubbles of extraluminal gas adjacent to sigmoid, no diaphragmatic air or abscess.; Provided with 1L NSS, Zosyn 4.5 g IV in ED. Admission and Anticipated Discharge Date Admission Date: October 30, 2024 Subjective Pt still with itchiness and diffuse upper body rash. He states his pain is a 4/10. Review of Systems Review of Systems: rash upper body extending down arms back and stomach CONST: Negative for fever, body aches and chills. HENT: Negative for neck pain/stiffness, headache, congestion, sore throat, swelling. EYES: Negative for discharge/pain or vision changes. RESP: Negative for cough/hemoptysis and shortness of breath. CV: Negative chest pain, difficulty breathing, palpitations. ABD: Negative pain, nausea, vomiting. : Negative increase frequency, dysuria, blood in urine or stool. MUSC: Negative for muscle aches, edema. SKIN: Negative rash, lesions/sores. NEURO: Negative headache, dizziness, weakness. Physical Exam Physical Exam: GENERAL APPEARANCE NAD, activity normal for age, well developed/ well nourished, no cyanosis, pallor, or diaphoresis. EYES lids/conjunctiva normal. EARS/NOSE/THROAT Mucous membranes moist, nares normal, lips/teeth normal uvula midline without oral pharyngeal erythema, exudate or swelling TMs normal bilaterally. No lymphangitis/lymphedema. HEAD/NECK normocephalic atraumatic, no facial trauma, neck is supple. RESPIRATORY respiratory effort normal, speaks in full sentences, no tripod position, no accessory muscle use. Lungs clear to auscultation without rhonchi, wheezes, rales CARDIAC Regular rate and rhythm, no edema. ABDOMINAL Soft, ND/NT. No evidence of fluid wave. No pulsatile masses on exam, rebound tenderness, Rios sign or pain over Mcburney's point. MUSCLES/EXTREMITIES No abnormal range of motion, no swelling. SKIN Diffuse rash on upper body. NEUROLOGICAL Speech is clear and appropriate. Normal level of consciousness. Gait and coordination are normal. 5/5 strength in all extremities. PSYCH Normal mood and affect. Judgement/competence is appropriate Results & Data Results & Data Vital Signs (Past 12 Hours) Vital Signs Temp Pulse Pulse Pulse Resp BP BP 10/31/24 07:15 36.6 C 64 18 103/66 10/31/24 05:10 37.7 C H 10/31/24 01:37 36.7 C 96 H 18 118/71 10/31/24 01:32 62 12 113/72 10/31/24 01:00 62 16 113/92 10/31/24 00:40 70 18 115/65 10/30/24 23:58 70 10/30/24 23:27 69 18 115/76 Pulse Ox O2 Del Method 10/31/24 07:15 92 Room Air 10/31/24 05:10 97 Room Air 10/31/24 01:37 97 Room Air 10/31/24 01:32 96 10/31/24 01:00 96 Room Air 10/31/24 00:40 98 Room Air 10/30/24 23:58 10/30/24 23:27 99 Room Air PG Care Time/CCT Total # of Minutes Spent Total Time Spent with Patient: Total time spent is greater than 50% in coordination of care (as documented) at patient's floor/unit and/or counseling patient: Coding Level of Care Code 72283 SUB INP/OBS CARE 2/35MIN Diagnoses Acute diverticulitis K57.92 Drug rash L27.0
[2024-10-31] MEDS: KETOROLAC TROMETHAMINE 15 MG/ML VIAL IV PRN (11:38)
--- NOTE | 2024-10-31 13:25 | Surgery Consultation ---
Date of Consultation October 31, 2024 Assessment & Plan (1) Diverticulitis: IV abx bowel rest possibly begin diet tomorrow conservative treatment History of Present Illness Attending Physician: Thanh Villatoro MD History of Present Illness This is a 54YO male with known diverticulosis who presented with abdominal pain, WBC at 16.05. CT scan with diverticulitis of sigmoid, few bubbles of extraluminal gas adjacent to sigmoid, no diaphragmatic air or abscess. He feels better today on IV abx. Allergies Allergy/AdvReac Type Severity Reaction Status Date / Time piperacillin [From Zosyn] Allergy Hives Verified 10/30/24 23:16 tazobactam [From Zosyn] Allergy Hives Verified 10/30/24 23:16 Home Medications Medication Instructions Recorded Confirmed Type melatonin 10 mg capsule 10 mg PO HS Insomnia 11/15/21 10/30/24 History allopurinol 100 mg tablet 200 mg PO DAILY 10/30/24 10/30/24 History ascorbic acid (vitamin C) 1,000 mg 1,000 mg PO DAILY 10/30/24 10/30/24 History tablet (Vitamin C) hydrocortisone 2.5 % topical cream 1 applic [place] DAILY PRN Hemorrhoids 10/30/24 10/30/24 History with perineal applicator (Procto-Med HC) vitamin D3 125 mcg (5,000 1 cap PO DAILY 10/30/24 10/30/24 History unit)-vitamin K2 100 mcg capsule zinc 50 mg tablet 50 mg PO DAILY 10/30/24 10/30/24 History Patient History Surgical History History of tooth extraction History of hernia repair History of hand surgery Family History Mother Thyroid condition Thyroid Grandfather (Maternal) Prostate cancer Denies family history of Colon cancer Ovarian cancer Myocardial infarction Breast cancer Social History Smoking Status: Never smoker Hx Alcohol Use: Yes Alcohol type: wine Hx Substance Use: No Preferred Language: Maldivian Communication Ability: Effective Visual Impairment: No Limitations Hearing Ability: Normal Auto Top Mechanic Required: No Beliefs That Will Affect Care: None marital status: Current Living Situation: Spouse current occupational status: employed Other Information That Helps Us Care for You: No Feels Safe at Home: Yes Childhood Exposure to Second-Hand Smoke: No Dental Care, Regularly: Yes Physical Activity Frequency: Does not Exercise Physical Activity Frequency Comment: none in past 4 months Seatbelt Use: always Sunscreen Use: Yes Assistive Devices: None Review of Systems Constitutional: no fever and no chills Eyes: no problem reported Ear, Nose, Mouth, Throat: no problem reported Respiratory: no cough and no dyspnea Cardiovascular: no chest pain Gastrointestinal: + abdominal pain; no nausea, no vomiting and no change in bowel habits Genitourinary: no dysuria Integumentary: no problem reported Neurologic: no localized weakness and no generalized weakness Psychiatric: no behavioral changes Hematologic / Lymphatic: no easy bleeding and no easy bruising Physical Exam Constitutional: WD/WN, vitals as above Eyes: no scleral abnormality ENMT: external ear and nose normal, oropharynx normal Respiratory: normal respiratory effort Cardiovascular: RRR, no murmur, no edema Gastrointestinal (Abdomen): Inspection/Auscultation: abdomen normal to in spection and normal bowel sounds; abdomen not distended Percussion/Palpation: + abdomen tender and abdomen soft; no guarding and abdomen not rigid Musculoskeletal: Head/Neck/Chest: normocephalic and head atraumatic Skin: no rashes, warm and dry Results & Data Vital Signs (Past 12 Hours) Vital Signs Temp Pulse Pulse Resp BP BP Pulse Ox 10/31/24 07:15 36.6 C 64 18 103/66 92 10/31/24 05:10 37.7 C H 97 10/31/24 01:37 36.7 C 96 H 18 118/71 97 10/31/24 01:32 62 12 113/72 96 O2 Del Method 10/31/24 07:15 Room Air 10/31/24 05:10 Room Air 10/31/24 01:37 Room Air 10/31/24 01:32 Diagnostic Findings EXAM: CT Abdomen and Pelvis With Intravenous Contrast CLINICAL HISTORY: Reason for exam: abd pain. TECHNIQUE: Axial computed tomography images of the abdomen and pelvis with intravenous contrast. CTDI is 26.99 mGy and DLP is 1384.15 mGy-cm. Automated exposure control was utilized for the study. A dose lowering technique was utilized adhering to the principles of ALARA. CONTRAST: Patient received 93ml opt 320 of IV contrast COMPARISON: CT 10/05/2021 FINDINGS: ABDOMEN: Liver: Unremarkable. Gallbladder and bile ducts: Unremarkable. Pancreas: Unremarkable. Spleen: Unremarkable. Adrenals: Unremarkable. Kidneys and ureters: Unremarkable. No obstructing stones. No hydronephrosis. Stomach and bowel: Acute diverticulitis of the sigmoid colon. A few bubbles of extraluminal gas contained immediately adjacent to the sigmoid colon. No subdiaphragmatic free air. No abscess. Reactive mucosal thickening in the small bowel in the left lower quadrant. No bowel obstruction. PELVIS: Appendix: No findings to suggest acute appendicitis. Bladder: Unremarkable. Reproductive: Prostatomegaly. ABDOMEN and PELVIS: Intraperitoneal space: See above. Bones/joints: No acute fracture. Soft tissues: Posterior diaphragmatic hernia containing fat. Vasculature: Unremarkable. Lymph nodes: Unremarkable. IMPRESSION: Acute diverticulitis of the sigmoid colon. A few bubbles of extraluminal gas contained immediately adjacent to the sigmoid colon. No subdiaphragmatic free air. No abscess.
--- NOTE | 2024-11-01 08:55 | Surgery Progress Note ---
Date of Service November 01, 2024 Assessment & Plan (1) Acute diverticulitis: Plan: His white blood cell count normalized yesterday and he is improving clinically without much pain He is tolerating a clear liquid diet, will check back on him after lunch and if he is still doing well we will advance to full liquids for dinner No plans for any surgical intervention Surgery will follow with tentative discharge for tomorrow if he continues his current course He will need 2 weeks of oral antibiotics upon discharge His last colonoscopy was 5 years ago and he should have this again about 6 to 8 weeks after his acute episode resolves Admission and Anticipated Discharge Date Admission Date: October 30, 2024 Subjective Patient seen and examined. States pain is improved and now a 3 out of 10. Afebrile. Tolerating clinical diet. Review of Systems Constitutional: no fever and no chills Eyes: no blind spots and no corrective lenses Respiratory: no cough and no dyspnea Cardiovascular: no chest pain and no dyspnea on exertion Gastrointestinal: + abdominal pain; no nausea, no vomiting , no constipation and no diarrhea/loose stools Genitourinary: no dysuria or no urinary incontinence Integumentary: no acne, no rash and no lesions Psychiatric: no behavioral changes and no depression Hematologic / Lymphatic: no easy bleeding and no easy bruising Physical Exam Constitutional: WD/WN, vitals as above Eyes: PERRL, conjunctivae normal, anicteric sclerae ENMT: external ear and nose normal, oropharynx normal Respiratory: normal respiratory effort, lungs clear to auscultation Cardiovascular: RRR, no murmur, no edema Gastrointestinal (Abdomen): Inspection/Auscultation: abdomen normal to inspection; abdomen not distended Percussion/Palpation: + abdomen tender (Left lower quadrant, mild) and abdomen soft; no guarding Musculoskeletal: no cyanosis or clubbing, extremities motor strength 5/5 Psychiatric: A+Ox3, euthymic affect Results & Data Vital Signs (Past 12 Hours) Vital Signs Temp Pulse Resp BP Pulse Ox O2 Del Method 11/01/24 07:58 36.7 C 57 L 18 116/70 97 Room Air PG Care Time/CCT Total # of Minutes Spent Total Time Spent with Patient: Total time spent is greater than 50% in coordination of care (as documented) at patient's floor/unit and/or counseling patient: Coding Level of Care Code 87442 SUB INP/OBS CARE MIN Diagnoses Acute diverticulitis K57.92
[2024-11-01 09:39] LABS: Hematocrit (blood only) 38.5 % (42.0-52.0); Hemoglobin 12.7 g/dl (14.0-18.0); Mean Corpuscular Hemoglobin 30.1 pg (25.0-34.0); Mean Corpuscular Volume 91.2 fL (80.0-100.0); Platelet Count 188 K/uL (130-400); RDW Standard Deviation 42.5 fL (36.4-46.3); Red Blood Count 4.22 M/uL (4.70-6.10); White Blood Count 6.57 K/ul (4.8-10.8)
[2024-11-01 09:54] LABS: Anion Gap 5.0 (3-11); Blood Urea Nitrogen 10.0 mg/dl (6-23); Calcium 8.8 mg/dl (8.6-10.3); Carbon Dioxide 27.0 mmol/L (21-32); Chloride 106.0 mmol/L (98-107); Creatinine Clr Calc Pharmacy 110.1 ml/min; Glucose 148.0 mg/dl (70-99(Fasting)); Potassium 3.5 mmol/L (3.5-5.1); Sodium 138.0 mmol/L (136-145)
--- NOTE | 2024-11-01 13:09 | Hospitalist Progress Note ---
Date of Service November 01, 2024 Assessment & Plan (1) Acute diverticulitis: (2) Drug rash: Plan 54-year-old male PMHx diverticulosis and diverticulitis in September 2021, gout, BPH, and back pain presenting for abdominal pain starting at 0200 morning of arrival. ED eval CBC with leukocytosis 16.05, neutrophil predominant; CMP grossly unremarkable with exception of bilirubin 1.3; lipase 7; UA negative for infection; CTAP diverticulitis of sigmoid, few bubbles of extraluminal gas adjacent to sigmoid, no diaphragmatic air or abscess.; Provided with 1L NSS, Zosyn 4.5 g IV in ED. #Acute diverticulitis CTAP: diverticulitis of sigmoid, few bubbles of extraluminal gas adjacent to sigmoid, no diaphragmatic air/abscess CBC w/o leukocytosis. BMP w/ stable renal function & electrolytes. Continue Cipro & flagyl Advance to full liquids for lunch/dinner --> advance diet as tolerated to low fiber s/p IVF - tolerating liquids now, recommend increase liquid PO intake to ensure hydration. Toradol prn for pain or fever #Drug rash - resolved After receiving Zosyn + morphine s/p IV Benadryl Avoid Zosyn & Morphine during the hospital stay Admission and Anticipated Discharge Date Admission Date: October 30, 2024 Mary Lou Garay seen and examined this morning with his present. He reports that his pain has improved. He rated is a 2-3/10. He reports he is passing gas. Reports he was tolerating a clear liquid diet and he is ready to go home. Physical Exam Constitutional: WD/WN, vitals as above Eyes: PERRL, conjunctivae normal, anicteric sclerae Respiratory: normal respiratory effort Cardiovascular: no LE edema Gastrointestinal (Abdomen): +BS. tenderness to palpation of LLQ. sof t, no distention Neurologic: PERRL, EOMI, accommodation nl, no face palsy, no dysarthria Psychiatric: A+Ox3, euthymic affect Results & Data Results & Data Vital Signs (Past 12 Hours) Vital Signs Temp Pulse Resp BP Pulse Ox O2 Del Method 11/01/24 10:55 36.4 C L 60 18 124/78 96 Room Air 11/01/24 07:58 36.7 C 57 L 18 116/70 97 Room Air PG Care Time/CCT Total # of Minutes Spent Total Time Spent with Patient: Total time spent is greater than 50% in coordination of care (as documented) at patient's floor/unit and/or counseling patient: Coding Level of Care Code 38937 SUB INP/OBS CARE MIN Diagnoses Acute diverticulitis K57.92 Drug rash L27.0
[2024-11-02 07:22] VITALS: BP 144/93; RESP 18; TEMP 98.1; O2SAT 96
[2024-11-02 07:23] LABS: Hematocrit (blood only) 37.9 % (42.0-52.0); Hemoglobin 13.1 g/dl (14.0-18.0); Mean Corpuscular Hemoglobin 30.8 pg (25.0-34.0); Mean Corpuscular Volume 89.2 fL (80.0-100.0); Platelet Count 237 K/uL (130-400); RDW Standard Deviation 41.3 fL (36.4-46.3); Red Blood Count 4.25 M/uL (4.70-6.10); White Blood Count 7.43 K/ul (4.8-10.8)
[2024-11-02 07:41] LABS: Anion Gap 6.0 (3-11); Blood Urea Nitrogen 6.0 mg/dl (6-23); Calcium 9.1 mg/dl (8.6-10.3); Carbon Dioxide 29.0 mmol/L (21-32); Chloride 107.0 mmol/L (98-107); Creatinine Clr Calc Pharmacy 112.4 ml/min; Glucose 93.0 mg/dl (70-99(Fasting)); Potassium 3.6 mmol/L (3.5-5.1); Sodium 142.0 mmol/L (136-145)
--- NOTE | 2024-11-02 08:56 | Surgery Progress Note ---
Date of Service November 02, 2024 Assessment & Plan (1) Acute diverticulitis: Plan: If he tolerates his low fiber diet he can be discharged later today after his 2 PM dose of IV antibiotics He will need 2 weeks of oral antibiotics upon discharge His last colonoscopy was 5 years ago and he should have this again about 6 to 8 weeks after his acute episode resolves Surgery will sign off at this time, please call with any questions or concerns Admission and Anticipated Discharge Date Admission Date: October 30, 2024 Subjective Patient seen and examined. States he still has mild left lower quadrant pain, but improving. He has tolerated full liquid diet and is set to try a low fiber diet today. Denies any nausea or vomiting. Afebrile. Review of Systems Constitutional: no fever and no chills Eyes: no blind spots and no corrective lenses Respiratory: no cough and no dyspnea Cardiovascular: no chest pain and no dyspnea on exertion Gastrointestinal: + abdominal pain; no nausea, no vomiting , no constipation and no diarrhea/loose stools Genitourinary: no dysuria or no urinary incontinence Integumentary: no acne, no rash and no lesions Psychiatric: no behavioral changes and no depression Hematologic / Lymphatic: no easy bleeding and no easy bruising Physical Exam Constitutional: WD/WN, vitals as above Eyes: PERRL, conjunctivae normal, anicteric sclerae ENMT: external ear and nose normal, oropharynx normal Respiratory: normal respiratory effort, lungs clear to auscultation Cardiovascular: RRR, no murmur, no edema Gastrointestinal (Abdomen): Inspection/Auscultation: abdomen normal to inspection; abdomen not distended Percussion/Palpation: + abdomen tender (Left lower quadrant, mild) and abdomen soft; no guarding Musculoskeletal: no cyanosis or clubbing, extremities motor strength 5/5 Psychiatric: A+Ox3, euthymic affect Results & Data Vital Signs (Past 12 Hours) Vital Signs Temp Pulse Resp BP Pulse Ox O2 Del Method 11/02/24 07:22 36.7 C 61 18 144/93 H 96 Room Air 11/01/24 23:02 36.8 C 61 16 124/73 97 Room Air PG Care Time/CCT Total # of Minutes Spent Total Time Spent with Patient: Total time spent is greater than 50% in coordination of care (as documented) at patient's floor/unit and/or counseling patient: Coding Level of Care Code 54310 SUB INP/OBS CARE 05/08MIN Diagnoses Acute diverticulitis K57.92
--- NOTE | 2024-11-02 10:03 | Discharge Summary ---
Discharge Summary Date of Service November 02, 2024 Principal Dx & Hospital Course #1 = Principal Diagnosis (1) Acute diverticulitis: (2) Drug rash: Plan 54-year-old male PMHx diverticulosis and diverticulitis in September 2021, gout, BPH, and back pain presenting for abdominal pain starting at 0200 morning of arrival. #Acute diverticulitis CTAP: diverticulitis of sigmoid, few bubbles of extraluminal gas adjacent to sigmoid, no diaphragmatic air/abscess CBC w/ resolution of leukocytosis. BMP w/ stable renal function & electrolytes. Surgery followed - recommended 2 weeks worth of PO abx & colonoscopy in 6-8 weeks s/p Cipro/flagyl IV --> Cipro BID + Flagyl TID x 14 days upon discharge Referral sent to GI for colonoscopy. Tolerating low fiber diet - continue on discharge. #Drug rash - resolved After receiving Zosyn + morphine Rash likely secondary to Zosyn but both medications have been avoided his hospital stay. s/p IV Benadryl Discharged home 11/02. Admission HPI Per Admitting Provider 54-year-old male PMHx diverticulosis and diverticulitis in 2021, gout, BPH, and back pain presenting for abdominal pain starting at 0200 morning of arrival. States that the pain was a sudden onset, and was localized to his lower abdomen, just above the "genital region" per patient. States at its worse, it is a 7/10 on the pain scale and it is a sharp pain. It has not gotten any better, but it is worsened when he is sitting up straight or with movement. Reports that he has had diarrhea the past 2 days [employer], only a few times per day. He does use a daily laxative. Did have episode of "gagging like he would throw up" when having a bowel movement earlier in the day, but did not have any vomiting. He denies fever or chills. Does not have any ideas as to what could have precipitated this. Of note, he has been having itching on his bilateral thighs where the hospital blankets are touching him. No allergic symptoms or rashes reported. Denies chest pain, SOB, palpitations, constipation, numbness/tingling, URI symptoms, weakness, syncope, or falls. ED eval CBC with leukocytosis 16.05, neutrophil predominant; CMP grossly unremarkable with exception of bilirubin 1.3; lipase 7; UA negative for infection; CTAP diverticulitis of sigmoid, few bubbles of extraluminal gas adjacent to sigmoid, no diaphragmatic air or abscess.; Provided with 1L NSS, Zosyn 4.5 g IV in ED. Notified via [place] at 2306 regarding a rash spreading across the patient's back. He did note itching of his bilateral thighs during my initial evaluation around [id number], but he was without any hives or additional skin changes at that time to include on his back. He was without SOB, throat swelling, or tongue swelling. The rash extended from the top of his back to the level of his waistband. His bilateral thighs did have the development of hives at that time. He had received Zosyn at the time of when this initially started with the itching, and morphine was just to be given. Zosyn was documented to have been given at 2207, morphine and Zofran were documented to have been given at 2224. Do suspect that this reaction was to Zosyn, however, given the administration of morphine as well, treatment will be adjusted to avoid both Zosyn and morphine during this hospital admission. Pt treated with Benadryl IV. Please see Dr. Suh's attestation for adjustments/additions to treatment plan. Discharge Exam Constitutional WD/WN, vitals as above Eyes PERRL, conjunctivae normal, anicteric sclerae Respiratory normal respiratory effort Gastrointestinal (Abdomen) normal bowel sounds, soft, nontender, no hepatosplenomegaly Neurologic PERRL, EOMI, accommodation nl, no face palsy, no dysarthria Psychiatric A+Ox3, euthymic affect Discharge Plan Discharge Items Patient Disposition: Home - Self-Care Reason For Visit: DIVERTICULITIS Discharge Diagnosis: Diveticulitis Condition on Discharge: Fair Activity: Resume your previous activity Non-emergency contact: Primary Care Provider Call non-emergency contact if: you have any medication questions, your symptoms worsen and you have a fever Follow-up/Referrals: Aleksandar Green DO [Physician] - ProGeorgi MD [Primary Care Provider] - 11/15/24 3:00 pm Diet: Low Fiber Addtl Attending Provider Instructions: Mr. Padilla, Harry were recently hospitalized for abdominal pain and were found to have acute diverticulitis. You were treated with IV antibiotics and had improvement of your symptoms. Please see recommendations below regarding your discharge. You will require 14 days of oral antibiotics on discharge which consist of: Flagyl three times daily and Ciprofloxacin twice daily. You may take with food t o avoid GI upset. Given the duration of antibiotics, taking a daily probiotic would help replenish good bacteria in your gut. This will be once a day & a script has been sent to your pharmacy. Please try to maintain a low fiber diet for the next 4-6 weeks while your bowels recover. Please follow up with GI for a colonoscopy. A referral has been sent to their office on discharge & their phone number is above. Please follow up with your PCP within 1-2 weeks of discharge for continued care. If you experience pain at home you may use Tylenol or Ibuprofen. Best of luck! Gisselle Devine PA-C Pending Studies at Discharge: No Stand-Alone Forms: My [facility] Ceregene, Smoking Cessation Medications and DC Order Prescriptions: New ciprofloxacin HCl [Cipro] 500 mg tablet 500 mg PO BID 14 Days Qty: 28 0RF metronidazole 500 mg tablet 500 mg PO TID 14 Days Qty: 42 0RF Probiotic 15 billion cell capsule, sprinkle 1 cap PO DAILY Qty: 14 0RF Rx Instructions: do not crush/chew/cut; swallow whole OR may open and sprinkle in cold drink/food Continued melatonin 10 mg capsule 10 mg PO HS hydrocortisone [Procto-Med HC] 2.5 % cream with perineal applicator 1 applic WI DAILY PRN (Reason: Hemorrhoids) allopurinol 100 mg tablet 200 mg PO DAILY ascorbic acid (vitamin C) [Vitamin C] 1,000 mg Tablet 1,000 mg PO DAILY zinc 50 mg Tablet 50 mg PO DAILY vitamin D3-vitamin K2 125 mcg (5,000 unit)-100 mcg Capsule 1 cap PO DAILY Discharge Orders: Discharge Order (Routine); Ordered 11/02/24 Ordered By: Gisselle Hampton/Other Patient Handouts: Low-Fiber Diet Admission Data Admit Date/Time: 10/30/24 22:53 Attending Provider: Himanshu Kern Admit Provider: Bimal Suh Primary Care Provider: Georgi Mcdonnell Other Providers: Bimal Suh; Oumar Donohue Other Interventions: Discharge Summary Assessment (RN) Last Done: 11/02/24 10:05 Hospital Stay Data Consultations 10/30/24 21:55 ED Decision to Admit Stat 10/31/24 01:36 Consult General Surgery Routine Diagnostic Imagining Performed 10/30/24 19:51 CT abd pelvis IV con only Stat Pending Results Patient Have Any Pending Studies at Discharge: No Discharge Instructions Given to Patient (Per Discharging Provider) Mr. Padilla, Harry were recently hospitalized for abdominal pain and were found to have acute diverticulitis. You were treated with IV antibiotics and had improvement of your symptoms. Please see recommendations below regarding your discharge. You will require 14 days of oral antibiotics on discharge which consist of: Flagyl three times daily and Ciprofloxacin twice daily. You may take with food to avoid GI upset. Given the duration of antibiotics, taking a daily probiotic would help replenish good bacteria in your gut. This will be once a day & a script has been sent to your pharmacy. Please try to maintain a low fiber diet for the next 4-6 weeks while your bowels recover. Please follow up with GI for a colonoscopy. A referral has been sent to their office on discharge & their phone number is above. Please follow up with your PCP within 1-2 weeks of discharge for continued care. If you experience pain at home you may use Tylenol or Ibuprofen. Best of luck! Gisselle Devine PA-C Total Time Total Time Spent Total Time Spent (In Minutes): 45 Total Time Includes: Examination of the Patient, Discharge Planning and Medication Reconciliation Coding Level of Care Code 89354 INP/OBS DISCH >30 MIN Diagnoses Acute diverticulitis K57.92 Drug rash L27.0
[2024-11-02 10:07] VITALS: PULSE 62
== END 2024-11-02 10:54 | disposition home or self-care (01) | DRG 392 ==
LOC: ED 19:36 → SUATTDRO 22:53 → 3N 22:53